=== PATIENT | female | born 1950 | race African-American/Black ===

== ENCOUNTER 2016-05-19 18:06 | Emergency (ER) | payer SELFPAY ==
--- NOTE | 2016-05-19 18:31 | ED Physician Chart ---
Chief Complaint/HPI - Patient Information Date Seen:: 05/19/16 Time Seen:: 18:25 Chief Complaint:: Pt is here to have her blood pressure evaluated. History of Present Illness:: Pt has h/o HTN. Pt states that she has been out of her antihypertensive medication for about 4 weeks. Pt denies any COLE, visual changes, chest pain, dyspnea, weakness, numbness or other bodily pain/discomfort. Allergies:: Allergies Allergy/AdvReac Type Severity Reaction Status Date / Time acetaminophen [From Vicodin] Allergy Verified 05/19/16 18:24 codeine Allergy Verified 05/19/16 18:24 hydrocodone [From Vicodin] Allergy Verified 05/19/16 18:24 lisinopril Allergy Verified 05/19/16 18:24 Vitals:: see Nurse Note. Historian:: Patient Family MD/PCP:: unknown. LMP:: Postmenopausal. Review:: Nurse's Note Reviewed Review of Systems - Review of Systems General/Constitutional: No fever, No chills, No weight loss, No weakness, No diaphoresis, No edema, No loss of appetite Skin: No skin lesions, No rash, No bruising Head: No headache, No light-headedness Eyes: No loss of vision, No pain, No diplopia ENT: No earache, No nasal drainage, No sore throat, No tinnitus, Other (Chronic R ear hearing loss.) Neck: No neck pain, No swelling, No thyromegaly, No stiffness, No mass noted Cardio Vascular: No chest pain, No palpitations, No PND, No orthopnea, No edema Pulmonary: No SOB, No cough, No sputum, No wheezing GI: No nausea, No vomiting, No diarrhea, No pain, No melena, No hematochezia, No constipation, No hematemesis G/U: Dysuria (?), No frequency, No hematuria Sign Designer: No vaginal discharge, No abnormal vaginal bleed Musculoskeletal: No bone or joint pain, No back pain, No muscle pain Endocrine: No polyuria, No polydipsia Psychiatric: No prior psych history Hematopoietic: No bruising, No lymphadenopathy Allergic/Immuno: No urticaria, No angioedema Neurological: No syncope, No focal symptoms, No weakness, No paresthesia, No headache, No seizure, No dizziness, No confusion, No vertigo Past Medical History - Past Medical History Past Medical History: HTN, DM Family History: HTN (parents.) Social History: Non Smoker, No Alcohol, No Drug Use, , Lives Alone Surgical History: Hysterectomy ('03), other (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 R pupil tends be more dilated than L pupil according to pt.) Psychiatricy History: None Medication: Reviewed Family Medical History - Family Member Mother Living Status: Hx Family Hypertension: Yes Physical Exam - Physical Examination General/Constitutional: Awake, Well-developed, well-nourished, Alert, No distress, GCS 15, Non-toxic appearing, Ambulatory Other Gen/Cons comments:: Breathes comfortably, speaks clearly, interacts normally, and ambulates without difficulty. Eyes: Lids, conjuctiva normal, EOMI Other Eyes comments:: ? slight anisocoria with R pupil slightly enlarged. 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 Both pupils react to light and accommodation Skin: Nl inspection, No rash, No skin lesions, No ecchymosis, Well hydrated, No lymphadenopathy ENMT: External ears, nose nl, Nasal exam nl, Oropharynx nl, Tonsils nl Neck: Nontender, Full ROM w/o pain, No JVD, No nuchal rigidity, No bruit, No mass, No stridor Respiratory: Nl effort/Exclusion, Clear to Auscultation, No Wheeze/Rhonchi/Rales Cardio Vascular: RRR, No murmur, gallop, rubs GI: No tenderness/rebounding/guarding, No organomegaly, No hernia, Normal BS's, Nondistended, No mass/bruits, No McBurney tenderness Other GI comments:: Obese but soft. Extremities: No tenderness or effusion, Full ROM, normal strength in all extremities, No edema, Normal digits & nails Neuro/Psych: Alert/oriented (oriented x 3. CN II to XII are grossly intact except pt is hard of hearing on R ear which she confirms that it is a chronic condition for at least 15 years. Cerebellar exam (F to N, MARÍA ELENA): normal), DTR's symmetric, Normal sensory exam, Normal motor strength, Judgement/insight normal , Mood normal, Normal gait, No focal deficits (except as stated (decrease in hearing in R ear and slightly enlarged R pupil which are chronic according to pt.) Labs/Radiology/EKG Results - EKG Interpretations EKG Time:: 19:15 Rhythm: NSR Rate: 68 Comments:: LAE, LVH, NSSTT changes. No acute ischemic changes. ED Septic Shock - . Is Septic Shock (SBP<90, OR Lactate>4 mmol\L) present?: No Reassessment (Disposition) - Reassessment Reassessment:: 1954 Pt has been repeatedly evaluated. Pt feels well but her BP still remains elevated without significant improvement. BP 177/77. Will give another clonidine 0.1 mg po 2119 Pt has been reevaluated and observed for prolonged period. Her BP has been stablized with SBP at 140's-150's range, and DBP at 70's. Pt feels well without any COLE, CP or other bodily pain or discomfort. No lightheadedness or dyspnea. Pt has been ambulatory without difficulty. EKG and lab findings have been reviewed with pt. Pt requests to go home now and does not want further observation/management in hospital. Aftercare instructions given. Pt has been discussed with at length regarding health risks associated with poorly controlled and uncontrolled HTN. Pt states that she will be compliant with her medical therapy and will follow with a PCP in one day. Pt states that she knows how to monitor her BP at home and proper actions to be taken if BP is too high or low. Aftercare instructions given. Reassessment Condition:: Improved - Diagnosis Diagnosis:: HTN, poorly controlled due to noncompliance, now stabilized. Urinary tract infection., stable. Diabetes mellitus, stable. - Aftercare/Follow up Instructions Aftercare/Follow-Up Instructions:: Refer to Discharge Instructions Notes:: Pt has been discussed about the importance of compliance with her antihypertensive therapy. F/U with Dr. Espinoza or PCP of pt's choice in one day with repeat lab studies : BMP, urinalysis. Return to ER immediately if condition worsens or if any further questions/problems. Medication Prescribed:: Clonidine 0.1 mg tab one tab po q12h as directed for HTN. D-6 R-0 Bactrim DS one tab po q12h for 7 days. D-14 R-0 - Patient Disposition Discharge/Transfer:: Home Time:: 21:30 Condition at Disposition:: Stable, Improved ED Discharge Plan - Patient Disposition Admit/Discharge/Transfer: PT DISCHARGED HOME Instructions: Urinary Tract Infection, [id number], Hypertension Additional Instructions: follow up with your primary medical doctor ILDA take prescribed medications as ordered
[2016-05-19 19:03] LABS: HEMATOCRIT 40.4 % (35.0-45.0); HEMOGLOBIN 13.1 gm/dL (11.7-15.5); MEAN CELL VOLUME 84.9 fl (81-100); MEAN CORPUSCULAR HEMOGLOBIN 27.6 pg (27.0-31.0); MEAN CORPUSCULAR HGB CONC 32.5 pg (28.0-36.0); MEAN PLATELET VOLUME 8.2 fl; PLATELET COUNT 220 Th/cmm (150-400); RED BLOOD COUNT 4.76 Mil/cmm (3.80-5.10); RED CELL DISTRIBUTION WIDTH 14.6 % (11.5-20.0)
[2016-05-19 19:20] LABS: ANION GAP 12.9 (7.0-16.0); BUN - UREA NITROGEN 14 mg/dL (7-25); BUN/CREATININE RATIO 17.5; CALCIUM SERUM 9.3 mg/dL (8.6-10.3); CARBON DIOXIDE 27.6 mEq/L (21.0-31.0); CHLORIDE 105 mEq/L (98-107); CREATININE - SERUM 0.8 mg/dL (0.6-1.2); GLUCOSE 118 mg/dL (70-105); POTASSIUM SERUM 3.5 mEq/L (3.5-5.1); SODIUM SERUM 142 mEq/L (136-145)
[2016-05-19 19:22] LABS: URINE COLOR YELLOW
[2016-05-19 19:23] LABS: URINE BILIRUBIN NEGATIVE (NEGATIVE); URINE BLOOD NEGATIVE (NEGATIVE); URINE GLUCOSE (UA) NEGATIVE (NEGATIVE); URINE KETONE NEGATIVE (NEGATIVE); URINE PROTEIN NEGATIVE (NEGATIVE); URINE UROBILINOGEN 0.2 E.U./dL (0.2 - 1.0)
[2016-05-19 19:24] LABS: URINE BACTERIA MODERATE /hpf (NONE SEEN); URINE EPITHELIAL CELLS MANY /lpf (FEW); URINE RBC 0-2 /hpf (0-5)
[2016-05-19 19:25] LABS: URINE WBC 25-50 /hpf (0-5)
[2016-05-19 19:36] LABS: BASOPHIL 1 % (0-3); EOSINOPHIL 6 % (0-5); NEUTROPHILS 31 % (40-80); TOTAL CELLS COUNTED 100
[2016-05-19 19:37] LABS: PLATELET ESTIMATE ADEQUATE (NORMAL); PLATELET MORPHOLOGY NORMAL (NORMAL)
[2016-05-19 19:41] LABS: CREATINE KINASE MB 1.8 ng/mL (0.6-6.3)
== END 2016-05-19 21:40 | disposition home or self-care (01) ==
LOC: ER 18:06
DX: I10 Essential (primary) hypertension (principal); N39.0 Urinary tract infection, site not specified; E11.9 Type 2 diabetes mellitus without complications; Z90.710 Acquired absence of both cervix and uterus; Z88.6 Allergy status to analgesic agent; Z88.8 Allergy status to other drugs, medicaments and biological substances
CPT/HCPCS: 36415-UA; 80048-TC; 81001-TC; 82550-TC; 82553; 84484-TC; 85007-TC; 85027-TC; 87086-90; 93005; Z7610